=== PATIENT | female | born 1950 | race Two or more races ===

== ENCOUNTER 2024-02-26 14:07 | Emergency (ER) | payer OTHER ==
[~2024-02-26] VITALS: Ht 162.6 cm; Wt 63.5 kg
[2024-02-26] MEDS ORDERED: TIROSINT75 MCG PO (14:24)
[2024-02-26] MEDS ORDERED: NORVASC5 MG PO (14:24)
[2024-02-26] MEDS ORDERED: EFFEXOR XR150 MG PO (14:25)
[2024-02-26] MEDS ORDERED: AMBIEN10 MG PO (14:25)
[2024-02-26] MEDS ORDERED: DEXAMETHASONE SODIUM PHOSPHATE 4 MG/ML VIAL IV STA (14:56)
[2024-02-26 16:08] LABS: HEMOGLOBIN 14.2 g/dL (12.0-15.00); MEAN CELL VOLUME 89.6 fL (80.00-100.00); MEAN CORPUSCULAR HEMOGLOBIN 30.3 pg (27.00-32.0); MEAN CORPUSCULAR HGB CONC 33.9 g/dl (32.0-36.0); PLATELET COUNT 211 K/uL (150-450); RED BLOOD COUNT 4.69 M/uL (4.00-6.00); RED CELL DISTRIBUTION WIDTH 13.2 % (11.5-14.5)
[2024-02-26 16:15] LABS: PH,URINE 5.5 (5.0-8.0); URINE APPEARANCE Cloudy; URINE BILIRRUBIN Negative (NEGATIVE); URINE BLOOD Negative; URINE COLOR Dark Yellow; URINE GLUCOSE Negative (NEGATIVE); URINE LEUKOCYTE Trace; URINE NITRATE Negative; URINE PROTEIN 30 (NEGATIVE)
[2024-02-26 16:16] LABS: URINE BACTERIA 235.6 uL (0.0-1933); URINE EPITHELIAL CELLS 41.2 uL (0.0-38.8); URINE RBC 119.7 uL (0.0-20.8)
[2024-02-26 17:11] LABS: ALBUMIN 3.8 gm/dL (3.4-5.0); BILIRUBIN TOTAL 0.66 mg/dL (0.3-1.2); BILIRUBIN,CONJUGATED 0.18 mg/dL (0.0-0.2); BILIRUBIN,UNCONJUGATED 0.48 mg/dL (0.0-0.6); CALCIUM 10.3 mg/dL (8.5-10.1); CREATININE SERUM 0.55 mg/dL (0.55-1.02); GFR 107.75; POTASSIUM 3.49 mEq/L (3.5-5.1); TOTAL PROTEIN 7.9 gm/dL (6.4-8.2)
== END 2024-02-26 18:55 | disposition home or self-care (01) ==
LOC: ER 14:07
PROVIDERS: General Practice
DX: J06.9 Acute upper respiratory infection, unspecified (principal); J45.909 Unspecified asthma, uncomplicated; E03.8 Other specified hypothyroidism; I10 Essential (primary) hypertension; Z91.013 Allergy to seafood; Z20.822 Contact with and (suspected) exposure to COVID-19
CPT/HCPCS: 36415; 70450; 72100; 73060; 96365; 99284; J1100